=== PATIENT | male | born 1955 | race Caucasian/White ===

== ENCOUNTER 2017-10-11 05:31 | Day surgery (SDC) | payer OTHER ==
[2017-10-11] MEDS ORDERED: MITOMYCIN 5 MG INJ OP (06:00)
[2017-10-11] MEDS ORDERED: LIDOCAINE 1%/EPI 30 ML INJ (06:28)
[2017-10-11] MEDS ORDERED: BALANCED SALT SOLN 15 ML OPH IRRIG (07:00)
[2017-10-11] MEDS: INSULIN ASPART [NOVOLOG] 3 ML PEN SC ×2 (07:11→08:57)
[2017-10-11] MEDS ORDERED: TOBRAMYCIN/DEXAMETH 3.5 GM OPH OINT (07:42)
[2017-10-11] MEDS ORDERED: TETRACAINE 0.5% 4 ML OPH (07:42)
[2017-10-11] MEDS: LIDOCAINE 1.5%/EPI MPF (SDV) 30 ML VIAL INJ (07:45)
[2017-10-11] MEDS ORDERED: FENTAnyl 50 MCG/ML VIAL (07:46)
[2017-10-11] MEDS ORDERED: MIDAZOLAM 1 MG/ML 2 ML INJ (07:46)
[2017-10-11] MEDS: TETRACAINE 0.5% 4 ML OPH RIGHT EYE (07:52)
[2017-10-11] MEDS: TOBRAMYCIN/DEXAMETH 3.5 GM OPH OINT RIGHT EYE (08:05)
[2017-10-11] MEDS ORDERED: DEXTROSE 50% 50 ML SYRINGE IV ×2 (09:00)
[2017-10-11] MEDS ORDERED: GLUCOSE GEL 15 GRAM TUBE BUCCAL (09:00)
[2017-10-11] MEDS ORDERED: GLUCOSE GEL 15 GRAM TUBE PO ×2 (09:00)
[2017-10-11] MEDS ORDERED: GLUCAGON 1 MG INJ IM (09:00)
[2017-10-11] MEDS: OXYCODONE/ACETAMINOPHEN (5/325) TAB PO (10:49)
== END 2017-10-11 11:00 | disposition home or self-care (01) ==
LOC: SDS 05:31
DX: H11.001 Unspecified pterygium of right eye (principal); E11.9 Type 2 diabetes mellitus without complications; I10 Essential (primary) hypertension
CPT/HCPCS: 65426; 82962